=== PATIENT | female | born 1990 | race Caucasian/White ===

== ENCOUNTER → 2018-05-30 | Outpatient (CLI) | payer SELFPAY ==
--- NOTE | 2018-05-30 15:56 | RADIOLOGY REPORT (SQ) ---
EXAM DESCRIPTION: U/S OB 14+ TRNABD 1GES W/O DOP COMPLETED DATE/TIME: 05/30/2018 3:41 pm REASON FOR STUDY: Z34.02 ENCNTR FOR SUPRVSN OF NORMAL FIRST PREG, SECOND TRIMESTER Z34.02 ENCNTR FO R SUPRVSN OF NORMAL FIRST PREG, SECOND TRIME COMPARISON: None. TECHNIQUE: Static and Dynamic grayscale imaging performed of gravid uterus using transabdominal appr oach. Additional selected color Doppler and spectral images recorded. All stored on PACS. LIMITATIONS: None. FINDINGS: EGA: 24 weeks 4 days ADEOLA: 09/15/2018 EFW: 740+/- 110 grams PERCENTILE: 51 AURE: 11.4 cm. PLACENTA: Posterior GRADE: I PRESENTATION: Breech. ANATOMY: HEART RATE: 145 beats per minute. FOUR CHAMBER HEART: Visualized. THREE VESSEL CORD: Yes. CORD INSERTION: Visualized. KIDNEYS AND BLADDER: Visualized. Appear normal. STOMACH: Visualized. Appears normal. SPINE: Normal as visualized. BRAIN AND LATERAL VENTRICLES: Evaluation of the cerebellum and cisterna magna limited. OTHER: No other significant finding. MATERNAL ADNEXA: Maternal ovaries not visualized. CERVICAL LENGTH: 3.2 cm. Closed. OTHER: No other significant finding. IMPRESSION: LIVING INTRAUTERINE . ESTIMATED GESTATIONAL AGE 24 weeks 4 days. NO VISUALIZED ANOMALIES. Trimester of : Second trimester - 13 weeks 1 day to 27 weeks 6 days. TECHNICAL DOCUMENTATION: JOB ID: [id number] [employer]- All Rights Reserved Reading location - IP/workstation name: [email or web address]
== END ==
LOC: RAD 15:18
PROVIDERS: ATTEND Nurse Practitioner Women's Health
DX: Z34.02 Encounter for supervision of normal first pregnancy, second trimester (principal)
CPT/HCPCS: 76805

== ENCOUNTER 2018-12-26 13:05 | Emergency (ER) | payer MEDICAID ==
[2018-12-26] MEDS ORDERED: NALOXONE HCL INJ/PF 0.4 MG/1 ML SDV ONE (13:31)
[2018-12-26] MEDS ORDERED: NALOXONE HCL INJ/PF 0.4 MG/1 ML SDV IV ONE (13:48)
[2018-12-26] MEDS ORDERED: NORMAL SALINE 1000 ML 1,000 ML IV ONE ×2 (13:48→18:51)
[2018-12-26 13:58] LABS: ABSOLUTE BASOPHILS # (AUTO) 0.1 10^3/uL (0.0-0.2); ABSOLUTE EOSINOPHILS # (AUTO) 0.3 10^3/uL (0.0-0.6); ABSOLUTE LYMPHOCYTES (AUTO) 3.3 10^3/uL (0.5-4.7); ABSOLUTE MONOCYTES (AUTO) 0.6 10^3/uL (0.1-1.4); ABSOLUTE NEUT (AUTO) 4.2 10^3/uL (1.7-8.2); BASOPHILS % (AUTO) 0.6 % (0-2); EOSINOPHILS % (AUTO) 3.4 % (0-6); HEMATOCRIT 42.6 % (36.0-47.0); HEMOGLOBIN 14.8 g/dL (12.0-15.5); LYMPHOCYTES % (AUTO) 39.2 % (13-45); MEAN CORPUSCULAR HEMOGLOBIN 33.8 pg (27.0-33.4); MEAN CORPUSCULAR HGB CONC 34.7 g/dL (32.0-36.0); MEAN CORPUSCULAR VOLUME 97 fl (80-97); MONOCYTES % (AUTO) 7.3 % (3-13); PLATELET COUNT 278 10^3/uL (150-450); RED BLOOD COUNT 4.38 10^6/uL (3.72-5.28); RED CELL DISTRIBUTION WIDTH 12.7 % (11.5-14.0); SEGMENTED NEUTROPHILS % (AUTO) 49.5 % (42-78); TOTAL CELLS COUNTED % (AUTO) 100 %; WHITE BLOOD COUNT 8.5 10^3/uL (4.0-10.5)
[2018-12-26 14:14] LABS: ALANINE AMINOTRANSFERASE 20 U/L (9-52); ALBUMIN 4.7 g/dL (3.5-5.0); ALKALINE PHOSPHATASE 68 U/L (38-126); ANION GAP 13 (5-19); ASPARTATE AMINO TRANSFERASE 19 U/L (14-36); BILIRUBIN,DIRECT 0.2 mg/dL (0.0-0.4); BILIRUBIN,TOTAL 0.3 mg/dL (0.2-1.3); BLOOD UREA NITROGEN 11 mg/dL (7-20); CALCIUM 10.6 mg/dL (8.4-10.2); CARBON DIOXIDE 28 mmol/L (22-30); CHLORIDE 103 mmol/L (98-107); POTASSIUM 3.4 mmol/L (3.6-5.0); SODIUM 143.8 mmol/L (137-145); TOTAL PROTEIN 7.7 g/dL (6.3-8.2)
[2018-12-26 14:16] LABS: ACETAMINOPHEN < 10 ug/mL (10-30); ALCOHOL < 10 mg/dL (NONE DETECTED); GLUCOSE 62 mg/dL (75-110); SALICYLATE < 1.0 mg/dL (2.0-20.0)
[2018-12-26] MEDS ORDERED: DEXTROSE 50%-WATER 25 GM/50 ML DISP.SYRIN IV ONE (14:17)
[2018-12-26] MEDS ORDERED: POTASSI CL 20 MEQ/50 ML RIDER 20 MEQ/50 ML RTUPB IV ONE (14:18)
--- NOTE | 2018-12-26 14:23 | ER Document Report ---
ED General - General Chief Complaint: Possible Overdose Stated Complaint: POSSIBLE OVERDOSE Time Seen by Provider: 12/26/18 13:22 Primary Care Provider: DIANE CLEMONS NP [Primary Care Provider] - Follow up as needed Notes: Patient is a 28-year-old female that presents to the emergency department for chief complaint of suspected overdose. Patient at this time is rather somnolent, not answering questions appropriately, garbled speech. She reportedly was found unresponsive, after ingesting potentially 20 pills, the only drug found on scene was gabapentin, that was prescribed to the patient's mother. It is unclear why the patient did this, they suspect possible depression according to EMS. No further history obtainable at this time. REVIEW OF SYSTEMS: Complete review of systems is not obtainable at this time secondary to the patient's altered mental status. PHYSICAL EXAMINATION: Vital signs reviewed, nursing noted reviewed. GENERAL: Young female, currently altered, GCS 13 HEAD: Atraumatic, normocephalic. EYES: Eyes appear normal, extraocular movements intact, sclera anicteric, co njunctiva are normal. PERRLA ENT: nares patent, oropharynx clear without exudates. Moist mucous membranes. NECK: Normal range of motion, supple without lymphadenopathy LUNGS: Breath sounds clear to auscultation bilaterally and equal. No wheezes rales or rhonchi. HEART: Regular rate and rhythm without murmurs ABDOMEN: Soft, nontender, normoactive bowel sounds. No rebound, guarding, or rigidity. No masses appreciated. EXTREMITIES: Nontender, good range of motion, no pitting or edema. NEUROLOGICAL: GCS 13, patient opening eyes to verbal stimuli, will obey simple commands, will move all limbs spontaneously and to direction, speech is incomprehensible words at this time. No focal neurological deficits. Moves all extremities spontaneously Motor and sensory grossly intact on exam. PSYCH: Somnolent SKIN: Warm, Dry, normal turgor, no rashes or lesions noted on exposed skin TRAVEL OUTSIDE OF THE [place] IN LAST 30 DAYS: No Past Medical History - Social History Smoking Status: Former Smoker Family History: Reviewed & Not Pertinent Patient has suicidal ideation: Yes Patient has homicidal ideation: Yes Renal/ Medical History: Denies: Hx Peritoneal Dialysis Course - Re-evaluation Re-evalutation: Patient seen and examined, vital signs reviewed, on my exam the patient is rather somnolent, we did administer a trial dose of Narcan 0.4 mg, without change in the patient's mental status, her GCS currently is 13, she will open eyes to verbal stimuli, and follows simple commands. Workup for overdose and ingestion obtained. Patient did appear mildly dehydrated, given IV fluids Urinalysis is negative, hCG negative Blood work obtained and showed a mild hypokalemia, otherwise was unremarkable, given potassium via IV. This point the patient still rather somnolent, she will try to open her eyes, to stimuli, but cannot be medically clear at this time, will place petition for this patient, in the event that she wakes up, and wants to leave the hospital, at the that she is a threat to herself, given she intentionally overdosed on medication. - Laboratory Result Diagrams: 12/26/18 13:12 12/26/18 13:12 Laboratory results interpreted by me: 12/26/18 12/26/18 13:12 13:12 MCH 33.8 H Potassium 3.4 L Glucose 62 L Calcium 10.6 H Salicylates < 1.0 L Acetaminophen < 10 L - EKG Interpretation by Me Additional EKG results interpreted by me: EKG demonstrates sinus rhythm with a ventricular rate of 77 bpm, normal axis, QTC prolonged at 503 ms, no ischemic changes noted. No prior for comparison. Discharge - Discharge Clinical Impression: Overdose Qualifiers: Encounter type: initial encounter Injury intent: intentional self-harm Qualif ied Code(s): T50.902A - Poisoning by unspecified drugs, medicaments and biological substances, intentional self-harm, initial encounter Condition: Stable Referrals: DIANE CLEMONS NP [Primary Care Provider] - Follow up as needed
--- NOTE | 2018-12-26 14:34 | PSYCHOLOGICAL NOTE ---
Psych Note - Psych Note Date seen by psych provider: 12/26/18 Time seen by psych provider: 13:40 - Discussion with nurse at 1337. Chart review 1336. Attempted evalution at 1348 Psych Note: Reason for Consult: Possible OD Contact Permissions: Unknown. Mother Elis Escobedo [phone] listed as emergency contact on face sheet. Patient is a 28 year old female who presented to the ED today via EMS for possible OD. Per nurse EMS said the only medication at the scene was Gabapentin prescribed to her mother. Upon arrival she was noted to be stuporish but responding to verbal stimuli. Nurse noted patient had been administered Narcan 0.4MG IV without response/effect. When this clinician attempted evaluation patient was sleeping in bed, lying on back face up, did not open eyelids, with no eye movement what so ever. She did not respond to this clinician saying her name loudly, shaking her leg or arm. Attending nurse stated he informed patient a urine catheter would be utilized and her eyes fluttered but nothing else. Medical staff conducting catheter stated patient was a bit irritable at first but then nothing. This clinician observed patient after urine catheter and she presented just like when attempting evaluation (sleeping in bed, lying on back face up, closed eye lids and no eye movement). Chart review revealed she has only had two previous ED visits. On 05/30/18 for Trimester size and date (noted first and second trimester). On chif complaint was left flank pain. Diagnosis: Possible OD Impression/Plan: ED Physician requested 24 Hour IVC Petition and it was completed. Unable to assess patient at this time since she is not interacting or engaging in any treatment thus far. Will assess in the morning at which point she should more more stable, alert and oriented with ability to engage. Consu lted with Dr. Patterson regarding the management and care of patient. ED Physician in agreement.
[2018-12-26 14:48] LABS: AMORPHOUS SEDIMENT,URINE TRACE /HPF; APPEARANCE,URINE SLIGHTLY-CLOUDY; BILIRUBIN,URINE NEGATIVE (NEGATIVE); COLOR,URINE YELLOW; GLUCOSE, URINE NEGATIVE (NEGATIVE); KETONES,URINE NEGATIVE (NEGATIVE); LEUKOCYTE ESTERASE,URINE NEGATIVE (NEGATIVE); NITRITE,URINE NEGATIVE (NEGATIVE); PROTEIN,URINE NEGATIVE (NEGATIVE); UROBILINOGEN,URINE NEGATIVE mg/dL (<2.0)
[2018-12-26 15:05] LABS: URINE BARBITURATES SCREEN NEGATIVE; URINE BENZODIAZEPINES SCREEN NEGATIVE; URINE COCAINE SCREEN NEGATIVE; URINE MARIJUANA (THC) SCREEN UNCONFIRMED POSITIVE; URINE METHADONE SCREEN NEGATIVE; URINE PHENCYCLIDINE SCREEN NEGATIVE
--- NOTE | 2018-12-27 09:13 | PSYCHOLOGICAL NOTE ---
Psych Note - Psych Note Date seen by psych provider: 12/27/18 Time seen by psych provider: 07:10 - Information from nurse at 0709. Evaluation from [id number]. Collateral [id number]. Psych Note: Reason for Consult: Possible OD, 24 Hour IVC Petition Contact Permissions: Mother Elis Escobedo [phone] Patient is a 28 year old female who is in the ED on a 24 Hour IVC Petition due to Overdose of Gabapentin and inability to interact or engage yesterday so no information obtained. She admitted "I think I took 2 of those pills the EMS identified 2 hours prior to taking 4-5 more for sleep because the first 2 did not work." She stated there was a 2 hour period between the first 2 and the next 4-5. She denied the pills being hers. She stated "I wanted to go to sleep, I knew it wouldn't kill me." She denied past SI attempts, being prescribed Mh medications and MH hospitalizations. She denied SI/HI. She then started crying and when asked why she said "I want my 3 month old daughter, I'm not sure if she is okay." She stated she resides with her mother and brother and they were home yesterday. UDS was positive for amphetamine and cannabis. Patient was alert and oriented to self, person, place, time and situation. Mood was depressed with congruent affect as evidenced by crying. She denied SI/HI however mother noted a SI text to brother. She did not appear to be responding to internal stimuli as evidenced by fair eye contact, answering questions when addressed, staying on topic and carrying on dialogue conversation. Thought processes were linear. Conversational speech was within normal limits for rate, tone and prosody. Intellectual abilities are estimated to be average. Insight, judgment and impulse control were poor as evidenced by not being forth coming. Mother reported patient's brother received a text yesterday from patient that said "just let my daughter know I love her and I'm sorry I couldn't deal with this." Mother had to use young to patient's room to unlock it (not unusual for her to lock it) and they found patient on her bed altered. She identified patient and recent boyfriend broke up the other day, the previous relationship with baby's father didn't last long and she had gone through a big divorce a little over a year ago (was very depressed at that time per mother). She stated both her and the brother were home yesterday so baby was not alone. She stated patient has never done anything like this before. She described patient as "a very private person and has always been that way." She reported patient "was on Adderall in the past and told her it wad for depression, she became addicted to the Adderall and that is what ended her marriage." She denied previous hospitalizations. 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 Patient did not mention any of this and said she was just trying to sleep. Consulted with Dr. Patterson regarding the management and care of patient. ED Physician in agreement with recommendation.
--- NOTE | 2018-12-27 10:23 | ER Document Report ---
Doctor's Note Notes: 12/27/18 10:22 Patient seen and evaluated. She is alert, ambulatory and in no acute distress. Patient is medically cleared. She does not remember the events of yesterday. She does remember taking the gabapentin and states it was a suicide attempt. Patient will be placed on full IVC and admitted to psychiatric facility for further care. She currently has no complaints.
--- NOTE | 2018-12-27 10:24 | EKG REPORT ---
SEVERITY:- ABNORMAL ECG - SINUS RHYTHM PROLONGED QT INTERVAL : Confirmed by: Theresa Atkins 27-Dec-2018 10:24:23
[2018-12-27 14:21] VITALS: BP 133/90
== END 2018-12-27 14:57 ==
LOC: ER 13:05
DX: T50.902A Poisoning by unspecified drugs, medicaments and biological substances, intentional self-harm, initial encounter (principal); E87.6 Hypokalemia; X58.XXXA Exposure to other specified factors, initial encounter; F15.99 Other stimulant use, unspecified with unspecified stimulant-induced disorder; F12.99 Cannabis use, unspecified with unspecified cannabis-induced disorder; F32.9 Major depressive disorder, single episode, unspecified
CPT/HCPCS: 93005; 99285; 96361; 96375; 96365; 96366; 36415; 82962; 80307 ×5; 84703; 85025; 80053; 81001; 93010; G0480; J3490; J2310; J3480; J7030